=== PATIENT | male | born 1970 | race African-American/Black ===

== ENCOUNTER 2016-07-08 10:48 | Emergency (ER) | payer SELFPAY ==
[~2016-07-08] VITALS: Ht 175.3 cm; Wt 103.0 kg
[2016-07-08 10:52] VITALS: BP 133/86; PULSE 98; RESP 16; TEMP 98.3; O2SAT 92
[2016-07-08] MEDS ORDERED: SODIUM CHLOR 0.9% 1000 ML INJ 1,000 ML IV ONE ×2 (10:53→13:00)
[2016-07-08 10:56] VITALS: O2SAT 92
[2016-07-08] MEDS ORDERED: SODIUM CHLORIDE 0.9% FLUSH 10 ML FLUSH IVF PRN (11:00)
--- NOTE | 2016-07-08 11:10 | PD ---
HPI Chief Complaint: OD/ Ingestion Time Seen by Provider: 10:53 Travel History International Travel<30 days: No Contact w/Intl Traveler<30days: No Traveled to known affect area: No History of Present Illness HPI The patient is a 45-year-old male who presents to the emergency department via EMS for possible drug overdose. According to EMS the patient had a GCS of 3 upon arrival, they administered Narcan 0.4 mg intravenously and used bag valve ventilation as the patient was hypoxic. After administration of Narcan and oxygen, the patient became awake and alert, and upon arrival had a GCS of 15. The patient states he is not sure what medication/drug he took, however, states he was smoking some type of drug prior to arrival. He denies any IVDA or known narcotic ingestion. The patient denies any current physical complaints including chest pain, shortness breath, nausea, vomiting, or abdominal pain. However, the patient is a somewhat limited and reluctant historian, does not want to provide details into the drug ingestion and route of ingestion. The patient denies any suicidal ideation or intention. [facility] Past Medical History Medical History: Denies Significant Hx Past Surgical History Narrative Surgical Noncontributory Social History Alcohol Use: Yes Tobacco Use: Yes Substance Use: Yes Allergies-Medications (Allergen,Severity, Reaction): Coded Allergies: No Known Allergies (Unverified , 07/08/16) Review of Systems General / Constitutional: No: Fever Cardiovascular: No: Chest Pain or Discomfort Respiratory: No: Shortness of Breath Gastrointestinal: No: Nausea, Vomiting, Abdominal Pain Genitourinary: No: Dysuria Neurologic: No: Dizziness Psychiatric: Positive: Substance Abuse Physical Exam Narrative GENERAL: Awake, alert, pleasant 45-year-old female who appears her stated age and is in no acute respiratory distress. SKIN: Focused skin assessment warm/dry. HEAD: Atraumatic. Normocephalic. EYES: Pupils equal and round. Pupils are 2 mm bilateral and reactive. Mild injection. ENT: No nasal bleeding or discharge. Mucous membranes pink and moist. NECK: Trachea midline. No JVD. CARDIOVASCULAR: Regular rate and rhythm. No murmur appreciated. RESPIRATORY: No accessory muscle use. Clear to auscultation. Breath sounds equal bilaterally. GASTROINTESTINAL: Abdomen soft, non-tender, nondistended. No rebound tenderness. MUSCULOSKELETAL: No obvious deformities. No clubbing. No cyanosis. No edema. NEUROLOGICAL: Awake and alert. No obvious cranial nerve deficits. Motor grossly within normal limits. Normal speech. Nonfocal. Oriented 4. Follows commands without difficulty. PSYCHIATRIC: Flat affect. Data Data Last Documented VS Vital Signs Date Time Temp Pulse Resp B/P Pulse Ox O2 Delivery O2 Flow Rate FiO2 07/08/16 10:56 92 Room Air 07/08/16 10:52 98.3 98 16 133/86 Orders Electrocardiogram (07/08/16 10:53) Complete Blood Count With Diff (07/08/16 10:53) Comprehensive Metabolic Panel (07/08/16 10:53) Prothrombin Time / Inr (Pt) (07/08/16 10:53) Act Partial Throm Time (Ptt) (07/08/16 10:53) Urinalysis - C+S If Indicated (07/08/16 10:53) Chest, Single Ap (07/08/16 10:53) Iv Access Insert/Monitor (07/08/16 10:53) Ecg Monitoring (07/08/16 10:53) Oximetry (07/08/16 10:53) Sodium Chloride 0.9% Flush (Ns Flush) (07/08/16 11:00) Sodium Chlor 0.9% 1000 Ml Inj (Ns 1000 M (07/08/16 10:53) Drug Screen, Random Urine (07/08/16 10:53) Alcohol (Ethanol) (07/08/16 10:53) Salicylates (Aspirin) (07/08/16 10:53) Tylenol (Acetaminophen) (07/08/16 10:53) Sodium Chlor 0.9% 1000 Ml Inj (Ns 1000 M (07/08/16 13:00) Labs Laboratory Tests Test 07/08/16 11:00 White Blood Count 5.6 TH/MM3 Red Blood Count 5.02 MIL/MM3 Hemoglobin 13.9 GM/DL Hematocrit 40.3 % Mean Corpuscular Volume 80.2 FL Mean Corpuscular Hemoglobin 27.7 PG Mean Corpuscular Hemoglobin 34.6 % Concent Red Cell Distribution Width 13.7 % Platelet Count 207 TH/MM3 Mean Platelet Volume 8.0 FL Neutrophils (%) (Auto) 75.4 % Lymphocytes (%) (Auto) 14.1 % Monocytes (%) (Auto) 9.8 % Eosinophils (%) (Auto) 0.2 % Basophils (%) (Auto) 0.5 % Neutrophils # (Auto) 4.2 TH/MM3 Lymphocytes # (Auto) 0.8 TH/MM3 Monocytes # (Auto) 0.5 TH/MM3 Eosinophils # (Auto) 0.0 TH/MM3 Basophils # (Auto) 0.0 TH/MM3 CBC Comment DIFF FINAL Differential Comment Prothrombin Time 11.6 SEC Prothromb Time International 1.0 RATIO Ratio Activated Partial 24.4 SEC Thromboplast Time Sodium Level 139 MEQ/L Potassium Level 3.9 MEQ/L Chloride Level 103 MEQ/L Carbon Dioxide Level 29.2 MEQ/L Anion Gap 7 MEQ/L Blood Urea Nitrogen 16 MG/DL Creatinine 1.89 MG/DL Estimat Glomerular Filtration 39 ML/MIN Rate Random Glucose 174 MG/DL Calcium Level 8.5 MG/DL Total Bilirubin 0.8 MG/DL Aspartate Amino Transf 16 U/L (AST/SGOT) Alanine Aminotransferase 42 U/L (ALT/SGPT) Alkaline Phosphatase 73 U/L Total Protein 7.7 GM/DL Albumin 4.1 GM/DL Salicylates Level LESS THAN 1.7 MG/DL Acetaminophen Level LESS THAN 2.0 MCG/ML Ethyl Alcohol Level 4 MG/DL MDM Medical Decision Making Medical Screen Exam Complete: Yes Emergency Medical Condition: Yes Medical Record Reviewed: Yes Interpretation(s) EKG reveals normal sinus rhythm with a rate in 92. No ischemic changes or ectopy noted. Last Impressions Chest X-Ray 07/08/16 1053 Signed Impressions: Service Date/Time: Friday, July 08, 2016 10:53 - CONCLUSION: Diminished lung volumes with left basilar atelectasis. Elmer Toure MD Laboratory Tests Test 07/08/16 11:00 White Blood Count 5.6 TH/MM3 Red Blood Count 5.02 MIL/MM3 Hemoglobin 13.9 GM/DL Hematocrit 40.3 % Mean Corpuscular Volume 80.2 FL Mean Corpuscular Hemoglobin 27.7 PG Mean Corpuscular Hemoglobin 34.6 % Concent Red Cell Distribution Width 13.7 % Platelet Count 207 TH/MM3 Mean Platelet Volume 8.0 FL Neutrophils (%) (Auto) 75.4 % Lymphocytes (%) (Auto) 14.1 % Monocytes (%) (Auto) 9.8 % Eosinophils (%) (Auto) 0.2 % Basophils (%) (Auto) 0.5 % Neutrophils # (Auto) 4.2 TH/MM3 Lymphocytes # (Auto) 0.8 TH/MM3 Monocytes # (Auto) 0.5 TH/MM3 Eosinophils # (Auto) 0.0 TH/MM3 Basophils # (Auto) 0.0 TH/MM3 CBC Comment DIFF FINAL Differential Comment Prothrombin Time 11.6 SEC Prothromb Time International 1.0 RATIO Ratio Activated Partial 24.4 SEC Thromboplast Time Sodium Level 139 MEQ/L Potassium Level 3.9 MEQ/L Chloride Level 103 MEQ/L Carbon Dioxide Level 29.2 MEQ/L Anion Gap 7 MEQ/L Blood Urea Nitrogen 16 MG/DL Creatinine 1.89 MG/DL Estimat Glomerular Filtration 39 ML/MIN Rate Random Glucose 174 MG/DL Calcium Level 8.5 MG/DL Total Bilirubin 0.8 MG/DL Aspartate Amino Transf 16 U/L (AST/SGOT) Alanine Aminotransferase 42 U/L (ALT/SGPT) Alkaline Phosphatase 73 U/L Total Protein 7.7 GM/DL Albumin 4.1 GM/DL Salicylates Level LESS THAN 1.7 MG/DL Acetaminophen Level LESS THAN 2.0 MCG/ML Ethyl Alcohol Level 4 MG/DL Differential Diagnosis Differential diagnoses includes opiate ingestion, substance ingestion, polysubstance abuse, aspiration, suicidal ideation, intentional overdose, accidental overdose. Narrative Course IV was established, labs are drawn and sent, and the patient was placed on cardiac telemetry monitoring and continuous pulse oximetry monitoring. EKG was ordered and interpreted. Chest x-ray was obtained. The patient was reluctant and given history and to what he ingestion and route of ingestion, however, eventually stated he smoked an unknown substance. He denies any IVDA opiate overdose or opiate pill overdose. Chest x-rays unremarkable. The patient was reevaluated at 12:50 PM, he was sleeping, however, awakens easily. He is oriented 4, following commands. Patient's heart rate is within normal limits in the 60s, O2 sat on room air is 92%. The patient will be discharged at 2 PM if he is still neurologically intact and awakens easily. Diagnosis Primary Impression: Ingested substance, unknown drug Qualified Code: T50.901A - Ingested substance, unknown drug, accidental or unintentional, initial encounter Patient Instructions: General Instructions Additional Instructions: Follow-up with your primary physician. Return if symptoms worsen or progress. Disposition: 01 DISCHARGE HOME Condition: Stable Kash Deluca MD Jul 08, 2016 11:10
[2016-07-08 11:28] LABS: AUTOMATED NEUTROPHIL # 4.2 TH/MM3 (1.8-7.7); BASOPHIL % 0.5 % (0.0-2.0); EOSINOPHIL % 0.2 % (0.0-4.0); HEMATOCRIT 40.3 % (39.0-51.0); HEMO FLAGS DIFF FINAL; LYMPH % 14.1 % (9.0-44.0); LYMPHOCYTE # 0.8 TH/MM3 (1.0-4.8); MEAN CELL VOLUME 80.2 FL (80.0-100.0); MEAN CORPUSCULAR HEMOGLOBIN 27.7 PG (27.0-34.0); MEAN CORPUSCULAR HGB CONC 34.6 % (32.0-36.0); MONO % 9.8 % (0.0-8.0); NEUT % 75.4 % (16.0-70.0); PLATELET COUNT 207 TH/MM3 (150-450); RED BLOOD COUNT 5.02 MIL/MM3 (4.50-5.90); RED CELL DISTRIBUTION WIDTH 13.7 % (11.6-17.2); WHITE BLOOD COUNT 5.6 TH/MM3 (4.0-11.0)
[2016-07-08 11:34] LABS: APTT (PATIENT) 24.4 SEC (24.3-30.1); PROTHROMBIN TIME - PATIENT 11.6 SEC (9.8-11.6)
--- NOTE | 2016-07-08 11:44 | RADRPT ---
EXAM DATE/TIME: 07/08/2016 10:53 [facility] COMPARISON: No previous studies available for comparison. INDICATIONS : Short of breath. MEDICAL HISTORY : None. SURGICAL HISTORY : None. ENCOUNTER: Initial ACUITY: 1 day PAIN SCORE: 3/10 LOCATION: Bilateral chest FINDINGS: A single view of the chest demonstrates diminished lung volumes. Left basilar density. Right lung marquez ar. Heart normal in size. Osseous structures are intact. CONCLUSION: Diminished lung volumes with left basilar atelectasis. Elmer Toure MD on July 08, 2016 at 11:42 Board Certified Radiologist. This report was verified electronically.
[2016-07-08 11:47] LABS: ANION GAP 7 MEQ/L (5-15); AST (GOT) 16 U/L (15-37); BICARBONATE 29.2 MEQ/L (21.0-32.0); BLOOD UREA NITROGEN 16 MG/DL (7-18); CHLORIDE 103 MEQ/L (98-107); GLOMERULAR FILTRATION RATE 39 ML/MIN (>89); POTASSIUM 3.9 MEQ/L (3.5-5.1); SODIUM (NA) 139 MEQ/L (136-145)
[2016-07-08 11:51] LABS: ACETAMINOPHEN LESS THAN 2.0 MCG/ML (10.0-30.0); ALKALINE PHOSPHATASE 73 U/L (45-117); ALT (GPT) 42 U/L (12-78); TOTAL BILIRUBIN ADULT 0.8 MG/DL (0.2-1.0)
[2016-07-08 14:56] VITALS: BP 135/79
--- NOTE | 2016-07-09 13:04 | EKG ---
Date Performed: 07/08/2016 Time Performed: 10:58:12 PTAGE: 45 years EKG: Sinus rhythm VOLTAGE CRITERIA FOR LVH, CONSIDER NORMAL VARIANT BORDERLINE ECG NO PREVIOUS TRACING DOCTOR: Shubham Tesfaye Interpretating Date/Time 07/09/2016 13:04:14
== END 2016-07-08 15:04 | disposition home or self-care (01) ==
LOC: NEPC 10:48
DX: T50.901A Poisoning by unspecified drugs, medicaments and biological substances, accidental (unintentional), initial encounter (principal); R94.31 Abnormal electrocardiogram [ECG] [EKG]; Z72.0 Tobacco use
CPT/HCPCS: 71010; 80053; 80307; 85025; 85610; 85730; 93005; 96360; 99285; J7030